=== PATIENT | male | born 1950 | race Caucasian/White ===

== ENCOUNTER 2024-11-28 15:04 | Emergency (ER) | payer MEDICARE ==
[2024-11-28 15:16] VITALS: TEMP 98.1
--- NOTE | 2024-11-28 15:36 | ERPHSYRPT ---
- History of Present Illness Patient Subjective Stated Complaint: fell face first on concrete at gas station Triage Nursing Assessment: patient walked into ED he tripped over gas hose at gas station. patient is alert and orietnedx3, able to ambulate by self, gait is steady, patient has severe bruising nad hematoma around the right eyes swelling and bruising . denies loss of conscsiousness but says his head bounced off pavement. Physician History: Facial trauma, patient was at a gas station yesterday evening tripped over the gas hose falling onto his face, he developed a black eye with marked swelling about his face, he also had pain about his right ribs and right hand, he had no loss of conscious, He is not on any blood thinners Method of Injury: fall Occurred: yesterday Where Injury Occurred: other (gas station) Pain Location: face, hand, chest Severity of Pain-Max: moderate Modifying Factors: Improves With: cold therapy Associated Symptoms: denies symptoms Allergies/Adverse Reactions: No Known Drug Allergies Allergy (Verified 07/05/24 10:39) Home Medications: Aspirin 81 mg PO DAILY 04/27/12 [History] Lisinopril 20 mg [Zestril 20 MG] 20 mg PO DAILY 04/27/12 [History] Vit C/Vit E/Lutein/Min/Parsons-3 [Ocuvite Softgel] 1 cap PO DAILY 04/27/12 [History] Amlodipine/Atorvastatin [Amlodipine-Atorvast 2.5-20 mg] 1 ea PO DAILY 11/20/15 [History] Hx Tetanus, Diphtheria Vaccination/Date Given: No Hx Influenza Vaccination/Date Given: No Hx Pneumococcal Vaccination/Date Given: No Immunizations Up to Date: Yes Travel Risk - International Travel Have you traveled outside of the country in past 3 weeks: No - Emerging Infectious Disease Are you exhibiting symptoms associated with any current EIDs: No - Past Medical History Pertinent Past Medical History: Yes Neurological History: No Pertinent History ENT History: No Pertinent History Cardiac History: High Cholesterol, Hypertension Respiratory History: Sleep Apnea Endocrine Medical History: No Pertinent History Musculoskeletal History: Other GI Medical History: No Pertinent History History: No Pertinent History Psycho-Social History: Anxiety, Attention Deficit Disorder, Depression Male Reproductive Disorders: Prostate Cancer Other Medical History: rt knee surg and ruptured disk in lower back surg - Past Surgical History Past Surgical History: Yes Neuro Surgical History: No Pertinent History Cardiac: No Pertinent History Respiratory: No Pertinent History Gastrointestinal: No Pertinent History Genitourinary: No Pertinent History Musculoskeletal: Orthopedic Surgery Male Surgical History: Prostate Surgery Other Surgical History: rt knee scope, back surgery (states ruptured disc) - Social History Smoking Status: Never smoker Drug Use: none - Social Determinants of Health Will the patient participate in the screening: Declined to provide Physical Exam - Nursing Vital Signs Nursing Vital Signs: Initial Vital Signs Temperature 98.1 F 11/28/24 15:04 Pulse Rate 77 11/28/24 15:04 Respiratory Rate 20 11/28/24 15:04 Blood Pressure 143/77 11/28/24 15:04 O2 Sat by Pulse Oximetry 98 11/28/24 15:04 Pain Scale Pain Intensity 1 - Yuki Coma Score Best Eye Response (Yuki): (4) open spontaneously Best Verbal Response (Tangent): (5) oriented Best Motor Response (Tangent): (6) obeys commands Tangent Total: 15 - Physical Exam General Appearance: no apparent distress, alert Head Injury: no evidence of injury Eye Exam: right eye: other (Periorbital ecchymosis), bilateral eye: PERRL, EOMI ENT Exam: airway nml, nml ext.inspection, No evidence of ENT injury Neck Exam: supple, trachea midline, normal inspection, c-collar in place, No tenderness Respiratory/Chest Exam: normal breath sounds, No chest tenderness, No respiratory distress, No ecchymosis, No crepitus Cardiovascular Exam: normal heart sounds, regular rate/rhythm, normal peripheral pulses, No murmur, No edema, No JVD Gastrointestinal Exam: soft, No tenderness, No distention, No guarding Back Exam: normal inspection, normal range of motion, No vertebral tenderness Extremity Exam: normal inspection, normal range of motion, capillary refill <3 sec, pelvis stable, No tenderness Neurologic Exam: alert, oriented x 3, cooperative, 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, sensation nml, No motor deficits Skin Exam: normal color, warm, dry SpO2: 97 - Radiology Exams Ribs X-ray Interpretation: Interpreted by me, No Fracture, No Pneumothorax Right Hand X-ray Interpretation: Interpreted by me, No Fracture Ordered Tests: Active Orders 24 hr Category Date Time Status FACIAL BONES WO CONTRAST [CT] Stat Exams 11/28/24 15:29 Completed HAND (MINIMUM 3 VIEWS) Stat Exams 11/28/24 15:29 Taken HEAD WITHOUT CONTRAST [CT] Stat Exams 11/28/24 15:29 Completed RIBS UNILATERAL W/ PA CXR Stat Exams 11/28/24 16:48 Taken - Progress Progress Note: 11/28/24 17:24 Discussed x-rays and CT results, outpatient follow-up - Departure Departure Disposition: Home Clinical Impression: Facial contusion Qualifiers: Encounter type: initial encounter Qualified Code(s): S00.83XA - Contusion of other part of head, initial encounter Rib contusion Qualifiers: Encounter type: initial encounter Qualified Code(s): S29.8XXA - Other specified injuries of thorax, initial encounter Hand contusion Qualifiers: Encounter type: initial encounter Laterality: right Qualified Code(s): S60.221A - Contusion of right hand, initial encounter Condition: Stable Critical Care Time: No Referrals: EFREN LIN MD [Primary Care Provider, [facility]] - Follow up with PCP 7 days Instructions: Rib injury in adults, Black eye - ED discharge instructions, Taking care of bruises Additional Instructions: ice to areas of pain 10-15 min, 3-4 times a day, Ibuprofen 2-3 tabs 3 times a day for 1 week
--- NOTE | 2024-11-28 17:02 | XRAY ---
CLINICAL HISTORY: trauma COMPARISON: None. TECHNIQUE: Axial non-contrast CT scan of the brain was performed from the skull base to the high parietal region. One of the following dose reduction techniques was utilized for this exam: automated exposure control, adjustment of the mA and/or kV according to patient size, or use of iterative reconstruction. FINDINGS: Brain Parenchyma: Mild age-related cerebral involutional changes are noted. Small patchy deep periventricular hypodense areas are related to small vessel disease. There is normal attenuation of the cerebral hemispheres, cerebellum, and brainstem. Diffuse atherosclerotic changes of the vertebral and both ICA arteries are present, with scattered small calcified atheromatous plaques. Ventricular System: The ventricles are normal in size and configuration. There is no evidence of hydrocephalus or ventricular enlargement. Subarachnoid Spaces: The sulci and cisterns are normal. There is no evidence of subarachnoid hemorrhage or extra-axial fluid collections. Cerebellum and Brainstem: No masses, lesions, or areas of abnormal density are seen. Orbits: Right-sided periorbital hyperdense soft tissue thickening is noted, which could be related to post-traumatic small hematoma formation. Right cheek subcutaneous soft tissue thickening is noted, likely representing post-traumatic changes. The globes, optic nerves, and extraocular muscles appear normal. There is no evidence of orbital masses or abnormal density. Sinuses: The paranasal sinuses are clear. There is no evidence of sinusitis or mucosal thickening. Mastoid Air Cells: The mastoid air cells are clear. There is no evidence of mastoiditis. Skull: There is normal skull morphology. No acute fracture line is depicted. IMPRESSION: 1. No acute intracranial abnormality. No acute fracture is noted. 2. Right-sided periorbital hyperdense soft tissue thickening is noted, which could be related to post-traumatic small hematoma formation. 3. Right cheek subcutaneous soft tissue thickening is noted, likely representing post-traumatic changes. 4. Mild age-related cerebral involutional changes are present. 5. Deep periventricular white matter hypodense foci are related to small vessel disease. Electronically Signed by: Eduardo Childers MD. (11/28/2024 17:00:28 EDT)
--- NOTE | 2024-11-28 17:04 | XRAY ---
CLINICAL HISTORY: trauma COMPARISON: None. TECHNIQUE: A CT scan of the maxillofacial region was performed without the administration of intravenous contrast. Contiguous [specify slice thickness] axial images were obtained from the skull base to the mandible. Coronal and sagittal reformatted images were also reviewed. One of the following dose reduction techniques was utilized for this exam: automated exposure control, adjustment of the mA and/or kV according to patient size, and use of iterative reconstruction. FINDINGS: Bones: Maxilla: The maxillary bones are intact, without evidence of acute fracture, lytic or sclerotic lesions. No signs of maxillary sinus wall fractures are seen. Mandible: The mandibular bone is intact, with normal cortices and trabecular patterns. There is no evidence of fracture, osteomyelitis, or neoplastic lesion. Zygomatic Bones: The zygomatic arches are intact bilaterally, without evidence of fracture or deformity. Nasal Bones: The nasal bones are intact, with no signs of fracture or displacement. Orbital Morris: The orbital morris are intact, with no evidence of fracture or bony erosion. Orbits: There is a right periorbital and eyebrow subcutaneous hyperdense, well-defined lesion measuring about 16 x 10 mm in cross-section, consistent with acute hematoma formation. Follow-up is advised. The right cheek shows diffuse subcutaneous edema and soft tissue thickening, suggesting post-traumatic changes. The orbits are normal in size and shape. The globes are symmetric and well-positioned, with no evidence of proptosis. The extraocular muscles appear normal in size and symmetry. The optic nerves are normal in caliber and course, with no signs of compression or lesion. No retro-orbital masses or abnormal fluid collections are observed. Nasal Cavity and Paranasal Sinuses: Nasal Cavity: The nasal cavity is clear, with no evidence of masses or polyps. The nasal septum is deviated to the left side. There is a right middle viry bullosa with retained secretion, suggesting secondary infection or small polyp formation. Mild inferior nasal turbinate hypertrophy is noted. Frontal Sinuses: The frontal sinuses are well-pneumatized and free of fluid or soft tissue masses. Ethmoid Sinuses: The ethmoid air cells are clear, with no mucosal thickening or fluid levels. Maxillary Sinuses: The maxillary sinuses are well-pneumatized, with no fluid levels, mucosal thickening, or masses. Sphenoid Sinuses: The sphenoid sinuses are clear, with no abnormalities noted. Temporomandibular Joints (TMJ): The TMJs are symmetric and normal in appearance. The mandibular condyles are well-positioned within the glenoid fossae. There are no signs of dislocation, subluxation, or degenerative changes. The articular eminences are normal in contour. Soft Tissues: The soft tissues of the face, including the cheeks, lips, and submandibular regions, appear unremarkable. There are no masses, cysts, or abnormal fluid collections. The parotid and submandibular glands are normal in size and appearance, without focal lesions. Dentition: Streaking teeth artifacts are noted. The teeth are well-aligned, with no evidence of fractures or significant dental pathology. There are no signs of periapical abscesses or cystic lesions. The alveolar ridges are intact, without evidence of osteolysis. Additional Findings: There are no additional abnormal findings in the visualized soft tissue structures or bony elements. No signs of osteomyelitis or other infectious processes. IMPRESSION: 1. Right periorbital and eyebrow subcutaneous hyperdense, well-defined lesion measuring about 16 x 10 mm in cross-section, which could represent hematoma formation or another lesion. Follow-up is advised. 2. The right cheek shows diffuse subcutaneous edema and soft tissue thickening, suggesting post-traumatic changes. 3. No acute fracture line is appreciated. 4. The nasal septum is deviated to the left side. 5. There is a right middle viry bullosa with retained secretion, suggesting secondary infection or small polyp formation. 6. Mild inferior nasal turbinate hypertrophy is noted. RECOMMENDATIONS: No further imaging is required at this time. Clinical correlation is recommended for any persistent symptoms. Electronically Signed by: Eduardo Childers MD. (11/28/2024 17:02:22 EDT)
[2024-11-28 17:40] VITALS: BP 157/83; PULSE 86; RESP 14; O2SAT 99
--- NOTE | 2024-11-28 19:10 | XRAY ---
Indication: Pain and bruising following fall. Comparison: None 3 view right hand demonstrates osteopenia and minimal degenerative changes all IP joints. No acute bony, articular, or soft tissue abnormalities.
--- NOTE | 2024-11-28 19:14 | XRAY ---
Indication: Pain following fall. Comparison: Chest radiograph April 27, 2012 2 view right ribs demonstrates osteopenia, old posterior 10 rib fracture, mild right shoulder degenerative arthropathy, minimal lower lumbar degenerative spondylosis, and minimal dextroscoliosis centered at T7. Single PA chest demonstrates new bibasilar discoid atelectasis/scarring and a few tiny bilateral calcified granulomas. No focal infiltrate, consolidation, large effusion, or pneumothorax. Heart not enlarged. Remaining bony thorax intact. Impression: 1. Nonacute right ribs with chronic features. 2. PA chest demonstrates discoid atelectasis/scarring and old granulomatous disease. No acute cardiopulmonary abnormalities.
== END 2024-11-28 17:40 | disposition home or self-care (01) ==
LOC: ED 15:04
DX: S00.83XA Contusion of other part of head, initial encounter (principal); S20.211A Contusion of right front wall of thorax, initial encounter; S60.221A Contusion of right hand, initial encounter; W01.0XXA Fall on same level from slipping, tripping and stumbling without subsequent striking against object, initial encounter; Y92.524 Gas station as the place of occurrence of the external cause; I10 Essential (primary) hypertension; Z79.899 Other long term (current) drug therapy